=== PATIENT | female | born 2000 | race Two or more races ===

== ENCOUNTER 2024-04-22 18:39 | Emergency (ER) | payer SELFPAY ==
[2024-04-22] MEDS: Dexamethasone 4 MG Tab PO STA (19:21)
[2024-04-22] MEDS: Amoxicillin/Clavulanate K 875-125 MG Tab PO STA (19:21)
== END 2024-04-22 19:24 | disposition home or self-care (01) ==
LOC: MW.ED 18:39
DX: J02.9 Acute pharyngitis, unspecified (principal); Z79.899 Other long term (current) drug therapy; Z75.8 Other problems related to medical facilities and other health care
CPT/HCPCS: 99283; A9270; J8540